=== PATIENT | female | born 1995 ===

== ENCOUNTER 2021-05-02 21:24 | Emergency (ER) | payer SELFPAY ==
[~2021-05-02] VITALS: Ht 160 cm; Wt 59.0 kg
== END 2021-05-03 02:50 | disposition home or self-care (01) ==
LOC: ER 21:24
DX: T36.0X5A Adverse effect of penicillins, initial encounter (principal); Z91.013 Allergy to seafood; Z91.048 Other nonmedicinal substance allergy status; X58.XXXA Exposure to other specified factors, initial encounter
CPT/HCPCS: 99283; A9270